=== PATIENT | male | born 1995 | race Caucasian/White ===

== ENCOUNTER 2020-05-01 05:37 | Emergency (ER) | payer OTHER ==
[~2020-05-01] VITALS: Ht 162.6 cm; Wt 63.5 kg
[2020-05-01 05:42] VITALS: Ht 162.6 cm; Wt 63.5 kg
[2020-05-01 08:21] VITALS: BP 112/67
== END 2020-05-01 08:21 | disposition home or self-care (01) ==
LOC: ED 05:37
DX: S01.111A Laceration without foreign body of right eyelid and periocular area, initial encounter (principal); S01.81XA Laceration without foreign body of other part of head, initial encounter; S11.91XA Laceration without foreign body of unspecified part of neck, initial encounter; R51 Headache; F90.9 Attention-deficit hyperactivity disorder, unspecified type; F12.90 Cannabis use, unspecified, uncomplicated; V44.5XXA Car driver injured in collision with heavy transport vehicle or bus in traffic accident, initial encounter; Y93.I9 Activity, other involving external motion; Y99.8 Other external cause status; Y92.488 Other paved roadways as the place of occurrence of the external cause
CPT/HCPCS: 90715; J2001; Q0092